=== PATIENT | male | born 1955 | race Caucasian/White ===

== ENCOUNTER 2019-01-09 15:29 | Emergency (ER) | payer MEDICAID ==
[~2019-01-09] VITALS: Ht 182.9 cm; Wt 84.0 kg
[2019-01-09 16:46] LABS: BASOPHILS # (AUTO) 0.1 X10'3 (0-0.2); BASOPHILS % (AUTO) 0.9 % (0-1); EOSINOPHILS # (AUTO) 0.1 X10'3 (0-0.9); EOSINOPHILS % (AUTO) 0.9 % (0-6); HEMATOCRIT 43.8 % (42.0-52.0); HEMOGLOBIN 15.2 g/dl (14.0-17.9); LYMPHOCYTES # (AUTO) 1.2 X10'3 (1.1-4.8); LYMPHOCYTES % (AUTO) 15.6 % (21-51); MEAN CORPUSCULAR HEMOGLOBIN 36.9 PG (27.0-31.0); MEAN CORPUSCULAR HGB CONC 34.7 g/dL (33.0-36.5); MEAN CORPUSCULAR VOLUME 106.4 FL (78-98); MEAN PLATELET VOLUME 7.6 FL (7.4-10.4); MONOCYTES # (AUTO) 0.8 X10'3 (0-0.9); NEUTROPHILS # (AUTO) 5.3 X10'3 (1.8-7.7); NEUTROPHILS % (AUTO) 71.6 % (42-75); PLATELET COUNT 193 X10'3 (140-440); RED BLOOD COUNT 4.12 X10'6 (4.70-6.10); WHITE BLOOD COUNT 7.5 X10'3 (4.5-11.0)
[2019-01-09 17:03] LABS: ALANINE AMINOTRANSFERASE 94 U/L (12-78); ALBUMIN 2.9 G/DL (3.4-5.0); ALBUMIN/GLOBULIN RATIO 0.6 (1.1-1.5); ALKALINE PHOSPHATASE 100 IU/L (46-116); ANION GAP 13 (8-16); ASPARTATE AMINO TRANSFERASE 80 U/L (10-37); BILIRUBIN,TOTAL 0.5 MG/DL (0.1-1.0); BLOOD UREA NITROGEN 8 MG/DL (7-18); BUN/CREATININE RATIO 9.5 (5.4-32.0); CALCIUM 8.6 MG/DL (8.5-10.1); CHLORIDE 95 MMOL/L (99-107); CREATININE 0.84 MG/DL (0.60-1.10); GLUCOSE 83 MG/DL (70-104); SODIUM 128 MMOL/L (135-145); TOTAL CARBON DIOXIDE 20.1 MMOL/L (24-32); TOTAL PROTEIN 7.4 G/DL (6.4-8.2); eGFR > 90 ML/MIN
[2019-01-09 17:05] LABS: POTASSIUM 3.8 MMOL/L (3.5-5.1)
[2019-01-09 17:41] LABS: CLARITY,URINE CLOUDY (Clear); COLOR,URINE YELLOW (Yellow); GLUCOSE, URINE NEGATIVE (Neg); KETONES,URINE 40 mg/dl (Neg); LEUKOCYTE ESTERASE ,URINE MODERATE (Neg); NITRITES, URINE NEGATIVE (Neg); OCCULT BLOOD,URINE TRACE-INTACT (Neg); PROTEIN,URINE TRACE mg/dl (Neg)
[2019-01-09 17:47] LABS: UA COLLECTION TYPE FOLEY CATH
[2019-01-09 17:48] LABS: BACTERIA,URINE 4+ /HPF (Neg); MUCUS STRANDS NONE SEEN /LPF (Neg); SQUAMOUS EPITHELIAL CELL,UR NONE SEEN /LPF (FEW); WBC,URINE 20-30 /HPF (0-4)
[2019-01-09] MEDS ORDERED: iohexol 300mg/ml 100ml inj. ONE (17:50)
[2019-01-09] MEDS ORDERED: normal saline 1000ML IV soln IVB ONE ×2 (17:50→19:00)
[2019-01-09] MEDS ORDERED: ondansetron/PF 4mg/2ml inj IV ONE (17:50)
[2019-01-09] MEDS ORDERED: CEPH-572 PO ×2 (18:59→19:28)
[2019-01-09] MEDS ORDERED: ONDA4TAB6 PO ×2 (18:59→19:28)
[2019-01-09] MEDS ORDERED: METH4TAB3 PO (18:59)
[2019-01-09] MEDS ORDERED: METH500T PO ×2 (18:59→19:28)
[2019-01-09] MEDS ORDERED: HYDR-3965 PO ×2 (18:59→19:28)
[2019-01-09] MEDS ORDERED: CefTRIAXone 2gm/D5W 50ml 50 ML IV ONE (19:00)
[2019-01-09 19:52] VITALS: BP 155/86
== END 2019-01-09 19:55 | disposition home or self-care (01) ==
LOC: EDBD 15:31 → ER 15:31
DX: N39.0 Urinary tract infection, site not specified (principal); M54.5 Low back pain; E87.1 Hypo-osmolality and hyponatremia; M62.830 Muscle spasm of back; F17.200 Nicotine dependence, unspecified, uncomplicated
CPT/HCPCS: 36415; 74177; 80053; 81001; 85025; 85610; 87077; 87088; 87186; 93005; 96365; 96375; 99284; J0696; J2405; J7030; Q9967

== ENCOUNTER 2019-01-12 12:28 | Emergency (ER) | payer MEDICAID ==
[~2019-01-12] VITALS: Ht 182.9 cm; Wt 81.8 kg
[~2019-01-12 12:28] MED LIST: CEPH-572 PO; HYDR-3965 PO; METH500T PO; ONDA4TAB6 PO
[2019-01-12 12:40] VITALS: BP 120/90
[2019-01-12] MEDS ORDERED: BISA10SU60 RC (13:49)
[2019-01-12] MEDS ORDERED: POLY17PO10 PO (13:49)
[2019-01-12] MEDS ORDERED: MAGN296S68 PO (18:57)
== END 2019-01-12 14:08 | disposition home or self-care (01) ==
LOC: ER 12:29
DX: K59.00 Constipation, unspecified (principal); M54.9 Dorsalgia, unspecified; F10.99 Alcohol use, unspecified with unspecified alcohol-induced disorder; F17.200 Nicotine dependence, unspecified, uncomplicated; Z79.899 Other long term (current) drug therapy; Y90.9 Presence of alcohol in blood, level not specified
CPT/HCPCS: 74018; 99283

== ENCOUNTER 2019-01-12 17:04 | Emergency (ER) | payer MEDICAID ==
[~2019-01-12] VITALS: Ht 182.9 cm; Wt 81.8 kg
[~2019-01-12 17:04] MED LIST changes: +BISA10SU60 RC; +POLY17PO10 PO
[2019-01-12 17:32] VITALS: BP 126/86
[2019-01-12] MEDS ORDERED: MAGN296S68 PO (18:57)
== END 2019-01-12 19:25 | disposition home or self-care (01) ==
LOC: ER 17:05
DX: M54.5 Low back pain (principal); K59.00 Constipation, unspecified; Z79.899 Other long term (current) drug therapy
CPT/HCPCS: 99282